=== PATIENT | male | born 1965 | race Caucasian/White ===

== ENCOUNTER 2016-12-14 18:07 | Emergency (ER) | payer MEDICAID ==
[~2016-12-14] VITALS: Ht 175.3 cm; Wt 98.2 kg
[~2016-12-14 18:07] MED LIST: ALBU8.5H5 INH; AMOX-291 PO; CIPR500T3 PO; MULT-412 PO; ROSE PO; SIMV20TA3 PO; TAMS0.4C2 PO; [UNRECOGNIZED DRUG - OTHER] PO; fish oil; magnesium with zinc PO; vitamin d
[2016-12-14 18:08] VITALS: BP 128/80
== END 2016-12-14 19:40 | disposition home or self-care (01) ==
LOC: ED 19:15
DX: L03.317 Cellulitis of buttock (principal)
CPT/HCPCS: 99283

== ENCOUNTER 2017-03-30 11:50 | Emergency (ER) | payer MEDICAID ==
[~2017-03-30] VITALS: Ht 175.3 cm; Wt 100.0 kg
[2017-03-30 11:56] VITALS: BP 133/85
[2017-03-30] MEDS ORDERED: IBUPROFEN 200 MG TABLET PO ONE (12:30)
[2017-03-30] MEDS ORDERED: IBUPROFEN 200 MG TABLET ONE (12:34)
== END 2017-03-30 13:08 | disposition home or self-care (01) ==
LOC: ED 12:32
DX: S39.012A Strain of muscle, fascia and tendon of lower back, initial encounter (principal); G89.29 Other chronic pain; E78.00 Pure hypercholesterolemia, unspecified; J45.909 Unspecified asthma, uncomplicated; X58.XXXA Exposure to other specified factors, initial encounter; Y93.89 Activity, other specified; Y92.9 Unspecified place or not applicable; Y99.9 Unspecified external cause status
CPT/HCPCS: 99283

== ENCOUNTER 2017-05-09 13:42 | Emergency (ER) | payer MEDICAID ==
[~2017-05-09] VITALS: Ht 175.3 cm; Wt 100.7 kg
[2017-05-09 14:01] VITALS: BP 135/90
[2017-05-09] MEDS ORDERED: FAMOTIDINE 20 MG/2 ML IVP ONE (14:30)
[2017-05-09] MEDS ORDERED: MORPHINE SULFATE 4 MG/ML, 1ML IVPush PRN (14:30)
[2017-05-09] MEDS ORDERED: ONDANSETRON 2MG/ML, 2ML IVPush ONE (14:30)
[2017-05-09] MEDS ORDERED: SODIUM CHLORIDE 0.9% 1,000ML IVBOLUS ONE (14:30)
[2017-05-09] MEDS ORDERED: SODIUM CHLORIDE FLUSH 10ML SYR IVF ONE (14:30)
[2017-05-09 14:33] LABS: BASOPHILS # (AUTO) 0.01 x10^3/uL (0-0.1); BASOPHILS % (AUTO) 0 % (0-1); EOSINOPHILS # (AUTO) 0.12 x10^3/uL (0-0.4); EOSINOPHILS % (AUTO) 2 % (1-7); LYMPHOCYTES # (AUTO) 1.34 x10^3/uL (1-3.4); LYMPHOCYTES % (AUTO) 27 % (22-44); MD NO; MEAN CORPUSCULAR HEMOGLOBIN 29.9 pg (27.5-34.5); MEAN CORPUSCULAR HGB CONC 33.9 g/dL (33.2-36.2); MEAN CORPUSCULAR VOLUME 88.2 fL (81-97); MEAN PLATELET VOLUME 8.7 fL (7.4-10.4); MONOCYTES # (AUTO) 0.46 x10^3/uL (0.2-0.8); MONOCYTES % (AUTO) 9 % (2-9); NEUTROPHILS # (AUTO) 3.01 x10^3/uL (1.8-6.8); NEUTROPHILS % (AUTO) 61 % (42-75); PLATELET COUNT 293 x10^3/uL (130-400); RED BLOOD COUNT 4.61 x10^6/uL (4.38-5.82); RED CELL DISTRIBUTION WIDTH 12.7 % (9.4-14.8)
[2017-05-09 14:45] LABS: ALBUMIN 4.2 g/dL (3.4-5.0); ANION GAP 9 mmol/L (5-15); CALCIUM 9.1 mg/dL (8.5-10.1); CHLORIDE 107 mmol/L (98-107)
[2017-05-09 14:48] LABS: ALANINE AMINOTRANSFERASE 28 U/L (12-78); ALKALINE PHOSPHATASE 61 U/L (45-117); BILIRUBIN,TOTAL 0.6 mg/dL (0.2-1.0); CREATININE 1.36 mg/dL (0.7-1.3); TOTAL PROTEIN 7.3 g/dL (6.4-8.2)
== END 2017-05-09 15:24 | disposition home or self-care (01) ==
LOC: ED 15:18
DX: R10.33 Periumbilical pain (principal); E78.00 Pure hypercholesterolemia, unspecified
CPT/HCPCS: 36415; 76700; 80053; 83690; 85025; 99285

== ENCOUNTER 2017-05-31 15:15 | Emergency (ER) | payer MEDICAID ==
[~2017-05-31] VITALS: Ht 175.3 cm; Wt 97.9 kg
[2017-05-31] MEDS ORDERED: KETOROLAC 30 MG/1 ML ONE (15:54)
[2017-05-31] MEDS ORDERED: KETOROLAC 30 MG/1 ML IM ONE (16:00)
[2017-05-31 16:11] VITALS: BP 150/81
== END 2017-05-31 16:14 | disposition home or self-care (01) ==
LOC: ED 16:00
DX: G89.29 Other chronic pain (principal); M79.652 Pain in left thigh; M79.651 Pain in right thigh; M25.562 Pain in left knee; M25.561 Pain in right knee; M25.572 Pain in left ankle and joints of left foot; M25.571 Pain in right ankle and joints of right foot; M54.16 Radiculopathy, lumbar region; E78.00 Pure hypercholesterolemia, unspecified
CPT/HCPCS: 96372; 99283; J1885

== ENCOUNTER 2017-09-02 20:01 | Emergency (ER) | payer MEDICAID ==
[~2017-09-02] VITALS: Ht 175.3 cm; Wt 91.9 kg
[2017-09-02 20:08] VITALS: BP 129/76
== END 2017-09-02 21:31 | disposition home or self-care (01) ==
LOC: ED 21:00
DX: S90.32XA Contusion of left foot, initial encounter (principal); W23.0XXA Caught, crushed, jammed, or pinched between moving objects, initial encounter; Y93.89 Activity, other specified; Y92.89 Other specified places as the place of occurrence of the external cause; Y99.8 Other external cause status
CPT/HCPCS: 99284

== ENCOUNTER 2018-01-12 06:55 | Emergency (ER) | payer MEDICAID ==
[~2018-01-12] VITALS: Ht 175.3 cm; Wt 93.0 kg
[2018-01-12 07:00] VITALS: BP 121/75
[2018-01-12] MEDS ORDERED: KETOROLAC 30 MG/1 ML ONE (07:34)
[2018-01-12] MEDS ORDERED: KETOROLAC 30 MG/1 ML IM ONE (08:00)
== END 2018-01-12 08:38 | disposition home or self-care (01) ==
LOC: ED 08:12
DX: S39.012A Strain of muscle, fascia and tendon of lower back, initial encounter (principal); R21 Rash and other nonspecific skin eruption; J45.909 Unspecified asthma, uncomplicated; E78.00 Pure hypercholesterolemia, unspecified; G89.29 Other chronic pain; X58.XXXA Exposure to other specified factors, initial encounter; Y93.89 Activity, other specified; Y92.89 Other specified places as the place of occurrence of the external cause; Y99.8 Other external cause status
CPT/HCPCS: 72110; 96372; 99284; J1885

== ENCOUNTER 2018-03-03 14:02 | Emergency (ER) | payer MEDICAID ==
[~2018-03-03] VITALS: Ht 175.3 cm; Wt 93.5 kg
[2018-03-03 14:29] VITALS: BP 112/75
== END 2018-03-03 15:51 | disposition home or self-care (01) ==
LOC: ED 15:20
DX: K05.10 Chronic gingivitis, plaque induced (principal); E78.5 Hyperlipidemia, unspecified; I10 Essential (primary) hypertension; G89.29 Other chronic pain; J45.909 Unspecified asthma, uncomplicated; E78.00 Pure hypercholesterolemia, unspecified
CPT/HCPCS: 99283

== ENCOUNTER 2018-07-11 13:31 | Emergency (ER) | payer MEDICAID ==
[~2018-07-11] VITALS: Ht 175.3 cm; Wt 92.0 kg
[2018-07-11 14:50] LABS: BASOPHILS # (AUTO) 0.02 x10^3/uL (0-0.1); BASOPHILS % (AUTO) 0 % (0-1); EOSINOPHILS % (AUTO) 2 % (1-7); LYMPHOCYTES # (AUTO) 1.84 x10^3/uL (1-3.4); LYMPHOCYTES % (AUTO) 32 % (22-44); MD NO; MEAN CORPUSCULAR HEMOGLOBIN 29.8 pg (27.5-34.5); MEAN CORPUSCULAR HGB CONC 34.2 g/dL (33.2-36.2); MEAN CORPUSCULAR VOLUME 87.1 fL (81-97); MEAN PLATELET VOLUME 8.2 fL (7.4-10.4); MONOCYTES # (AUTO) 0.49 x10^3/uL (0.2-0.8); MONOCYTES % (AUTO) 9 % (2-9); NEUTROPHILS # (AUTO) 3.27 x10^3/uL (1.8-6.8); NEUTROPHILS % (AUTO) 57 % (42-75); PLATELET COUNT 306 x10^3/uL (130-400); RED BLOOD COUNT 4.47 x10^6/uL (4.38-5.82); RED CELL DISTRIBUTION WIDTH 13.9 % (9.4-14.8)
[2018-07-11 15:01] LABS: ALANINE AMINOTRANSFERASE 41 U/L (12-78); ALBUMIN 3.9 g/dL (3.4-5.0); ANION GAP 5 mmol/L (5-15); CALCIUM 9.1 mg/dL (8.5-10.1); CHLORIDE 111 mmol/L (98-107); CREATININE 1.04 mg/dL (0.7-1.3)
[2018-07-11 15:03] LABS: ALKALINE PHOSPHATASE 113 U/L (45-117); BILIRUBIN,TOTAL 0.3 mg/dL (0.2-1.0)
--- NOTE | 2018-07-11 15:52 | NUR ---
TO ROOM FROM LOBBY. NAD.
[2018-07-11] MEDS ORDERED: BACITRACIN OINT 500U/GM, 15 GM TP ONE (17:00)
[2018-07-11] MEDS ORDERED: BACITRACIN ZINC OINT 500U/GM, 0.9 GM ONE (17:14)
[2018-07-11 17:42] VITALS: BP 118/76
== END 2018-07-11 17:43 | disposition home or self-care (01) ==
LOC: ED 16:12
DX: L23.1 Allergic contact dermatitis due to adhesives (principal); E78.00 Pure hypercholesterolemia, unspecified; G89.29 Other chronic pain; E78.5 Hyperlipidemia, unspecified; I10 Essential (primary) hypertension
CPT/HCPCS: 36415; 74018; 80053; 83690; 85025; 99284

== ENCOUNTER 2018-07-26 15:05 | Emergency (ER) | payer MEDICAID ==
[~2018-07-26] VITALS: Ht 175.3 cm; Wt 90.2 kg
[2018-07-26 15:12] VITALS: BP 127/75
== END 2018-07-26 16:03 | disposition home or self-care (01) ==
LOC: ED 15:21
DX: J06.9 Acute upper respiratory infection, unspecified (principal); I10 Essential (primary) hypertension
CPT/HCPCS: 71046; 99283

== ENCOUNTER 2018-10-29 16:15 | Emergency (ER) | payer MEDICAID ==
[~2018-10-29] VITALS: Ht 175.3 cm; Wt 90.9 kg
[2018-10-29 16:19] VITALS: BP 112/74
== END 2018-10-29 17:06 | disposition home or self-care (01) ==
LOC: ED 16:56
DX: R10.33 Periumbilical pain (principal); I10 Essential (primary) hypertension; E78.5 Hyperlipidemia, unspecified; E78.00 Pure hypercholesterolemia, unspecified
CPT/HCPCS: 36415; 74021; 80053; 83690; 85025; 99284; Q0162

== ENCOUNTER 2019-03-19 14:36 | Emergency (ER) | payer MEDICAID ==
[~2019-03-19] VITALS: Ht 175.3 cm; Wt 97.4 kg
[2019-03-19 14:47] VITALS: BP 145/86
--- NOTE | 2019-03-19 15:11 | NUR ---
PT C/O RUQ ABD PAIN STARTING TODAY AT 0900. HX HERNIA REPAIR IN SAME AREA. CONNECTED TO MONITORING. CALL LIGHT IN REACH. AWAITING ORDERS AT THIS TIME.
[2019-03-19 16:02] LABS: BASOPHILS # (AUTO) 0.05 x10^3/uL (0-0.1); BASOPHILS % (AUTO) 1 % (0-1); EOSINOPHILS # (AUTO) 0.15 x10^3/uL (0-0.4); EOSINOPHILS % (AUTO) 2 % (1-7); LYMPHOCYTES # (AUTO) 1.32 x10^3/uL (1-3.4); LYMPHOCYTES % (AUTO) 16 % (22-44); MD NO; MEAN CORPUSCULAR HEMOGLOBIN 29.2 pg (27.5-34.5); MEAN CORPUSCULAR HGB CONC 33.5 g/dL (33.2-36.2); MEAN CORPUSCULAR VOLUME 87.3 fL (81-97); MEAN PLATELET VOLUME 8.2 fL (7.4-10.4); MONOCYTES # (AUTO) 0.68 x10^3/uL (0.2-0.8); MONOCYTES % (AUTO) 8 % (2-9); NEUTROPHILS # (AUTO) 6.22 x10^3/uL (1.8-6.8); NEUTROPHILS % (AUTO) 74 % (42-75); PLATELET COUNT 281 x10^3/uL (130-400); RED BLOOD COUNT 5.11 x10^6/uL (4.38-5.82); RED CELL DISTRIBUTION WIDTH 13.4 % (9.4-14.8)
[2019-03-19 16:06] LABS: ALBUMIN 3.8 g/dL (3.4-5.0); ANION GAP 6 mmol/L (5-15); CALCIUM 9.3 mg/dL (8.5-10.1); CHLORIDE 108 mmol/L (98-107)
[2019-03-19 16:11] LABS: ALANINE AMINOTRANSFERASE 23 U/L (12-78); ALKALINE PHOSPHATASE 112 U/L (45-117); BILIRUBIN,TOTAL 0.6 mg/dL (0.2-1.0); CREATININE 0.97 mg/dL (0.7-1.3); TOTAL PROTEIN 7.5 g/dL (6.4-8.2)
--- NOTE | 2019-03-19 17:03 | NUR ---
ALL RESULTS ARE BACK AT THIS TIME. CHART UP FOR RECHECK.
== END 2019-03-19 17:28 | disposition home or self-care (01) ==
LOC: ED 17:10
DX: R10.84 Generalized abdominal pain (principal); I10 Essential (primary) hypertension; E78.5 Hyperlipidemia, unspecified
CPT/HCPCS: 36415; 74021; 76700; 80053; 83690; 85025; 99284

== ENCOUNTER 2019-05-23 14:04 | Emergency (ER) | payer MEDICAID ==
[~2019-05-23] VITALS: Ht 175.3 cm; Wt 94.3 kg
[~2019-05-23 14:04] MED LIST changes: +SIMV20TA19 PO; -SIMV20TA3 PO
[2019-05-23 14:11] VITALS: BP 130/74
--- NOTE | 2019-05-23 15:50 | NUR ---
P to rm 1 from lobby
[2019-05-23 16:24] LABS: ALBUMIN 3.7 g/dL (3.4-5.0); ANION GAP 5 mmol/L (5-15); CALCIUM 9.1 mg/dL (8.5-10.1); CHLORIDE 107 mmol/L (98-107)
[2019-05-23 16:27] LABS: ALANINE AMINOTRANSFERASE 28 U/L (12-78); ALKALINE PHOSPHATASE 85 U/L (45-117); BASOPHILS # (AUTO) 0.03 x10^3/uL (0-0.1); BASOPHILS % (AUTO) 0 % (0-1); BILIRUBIN,TOTAL 0.4 mg/dL (0.2-1.0); EOSINOPHILS # (AUTO) 0.23 x10^3/uL (0-0.4); EOSINOPHILS % (AUTO) 3 % (1-7); LYMPHOCYTES # (AUTO) 2.06 x10^3/uL (1-3.4); LYMPHOCYTES % (AUTO) 28 % (22-44); MD NO; MEAN CORPUSCULAR HEMOGLOBIN 29.7 pg (27.5-34.5); MEAN CORPUSCULAR HGB CONC 33.5 g/dL (33.2-36.2); MEAN CORPUSCULAR VOLUME 88.7 fL (81-97); MONOCYTES # (AUTO) 0.55 x10^3/uL (0.2-0.8); MONOCYTES % (AUTO) 8 % (2-9); NEUTROPHILS # (AUTO) 4.42 x10^3/uL (1.8-6.8); NEUTROPHILS % (AUTO) 61 % (42-75); PLATELET COUNT 324 x10^3/uL (130-400); RED BLOOD COUNT 5.13 x10^6/uL (4.38-5.82); RED CELL DISTRIBUTION WIDTH 13.6 % (9.4-14.8); TOTAL PROTEIN 7.2 g/dL (6.4-8.2)
[2019-05-23 16:57] LABS: MICROSCOPIC NOT IND
--- NOTE | 2019-05-23 16:59 | NUR ---
PT STATES HE GETS STOMACH PAIN AND HE THINKS IT IS FROM STRESS. URINE SAMPLE OBTAINED.
[2019-05-23 17:02] LABS: CULTURE INDICATED? NO
== END 2019-05-23 17:44 | disposition home or self-care (01) ==
LOC: ED 17:04
DX: F41.1 Generalized anxiety disorder (principal); J45.909 Unspecified asthma, uncomplicated
CPT/HCPCS: 36415; 74021; 80053; 81003; 83690; 85025; 99284

== ENCOUNTER 2019-06-25 14:28 | Emergency (ER) | payer MEDICAID ==
[~2019-06-25] VITALS: Ht 175.3 cm; Wt 94.4 kg
--- NOTE | 2019-06-25 15:14 | NUR ---
PT RESTING IN [place] IN [place], LAB AT , DENIES ADDITIONAL NEEDS, CALL LIGHT ON LAP, NAD, EVEN AND UNLABORED RESPIRATIONS, CONVERSING WITH RN IN FULL AND COMPLETE SENTENCES NO SOB NOTED. WCTM. WAITING ON RAD AND LAB RESULTS
[2019-06-25 15:32] LABS: BASOPHILS # (AUTO) 0.02 x10^3/uL (0-0.1); BASOPHILS % (AUTO) 1 % (0-1); EOSINOPHILS # (AUTO) 0.14 x10^3/uL (0-0.4); EOSINOPHILS % (AUTO) 4 % (1-7); LYMPHOCYTES % (AUTO) 27 % (22-44); MD NO; MEAN CORPUSCULAR HEMOGLOBIN 29.4 pg (27.5-34.5); MEAN CORPUSCULAR HGB CONC 33.8 g/dL (33.2-36.2); MEAN PLATELET VOLUME 7.9 fL (7.4-10.4); MONOCYTES # (AUTO) 0.57 x10^3/uL (0.2-0.8); MONOCYTES % (AUTO) 15 % (2-9); NEUTROPHILS # (AUTO) 2.05 x10^3/uL (1.8-6.8); NEUTROPHILS % (AUTO) 54 % (42-75); PLATELET COUNT 267 x10^3/uL (130-400); RED BLOOD COUNT 5.18 x10^6/uL (4.38-5.82); RED CELL DISTRIBUTION WIDTH 13.6 % (9.4-14.8)
[2019-06-25 15:33] LABS: ALBUMIN 3.8 g/dL (3.4-5.0); ANION GAP 4 mmol/L (5-15); CALCIUM 9.2 mg/dL (8.5-10.1); CHLORIDE 110 mmol/L (98-107); CREATININE 1.12 mg/dL (0.7-1.3)
--- NOTE | 2019-06-25 15:47 | NUR ---
Pt resting in gurney with blanket, call light within reach, NAD, denies additional needs, even and unlabored respirations, eyes open, WCTM.
[2019-06-25 15:48] VITALS: BP 114/74
--- NOTE | 2019-06-25 16:16 | NUR ---
Patient given discharge instructions and they have confirmed that they understand the instructions. Patient ambulatory with steady gait. Questions answered, denies additional needs or questions at this time.
== END 2019-06-25 16:26 | disposition home or self-care (01) ==
LOC: ED 16:09
DX: R19.7 Diarrhea, unspecified (principal); R10.9 Unspecified abdominal pain; E78.00 Pure hypercholesterolemia, unspecified; J45.909 Unspecified asthma, uncomplicated; G89.29 Other chronic pain; Z98.890 Other specified postprocedural states
CPT/HCPCS: 36415; 74018; 80048; 82040; 85025; 99284

== ENCOUNTER 2019-12-14 03:31 | Emergency (ER) | payer MEDICAID ==
[~2019-12-14] VITALS: Ht 172.7 cm; Wt 90.8 kg
[2019-12-14 03:35] VITALS: BP 137/84
[2019-12-14 04:11] LABS: BASOPHILS % (AUTO) 1 % (0-1); EOSINOPHILS % (AUTO) 1 % (1-7); LYMPHOCYTES % (AUTO) 9 % (22-44); MEAN CORPUSCULAR HEMOGLOBIN 29.9 pg (27.5-34.5); MEAN CORPUSCULAR HGB CONC 33.4 g/dL (33.2-36.2); MEAN PLATELET VOLUME 8.2 fL (7.4-10.4); MONOCYTES % (AUTO) 18 % (2-9); NEUTROPHILS % (AUTO) 72 % (42-75); PLATELET COUNT 236 x10^3/uL (130-400); RED BLOOD COUNT 4.99 x10^6/uL (4.38-5.82); RED CELL DISTRIBUTION WIDTH 13.2 % (9.4-14.8)
[2019-12-14 04:14] LABS: MD NO
[2019-12-14 04:19] LABS: ANION GAP 5 mmol/L (5-15); CALCIUM 8.8 mg/dL (8.5-10.1); CHLORIDE 107 mmol/L (98-107); CREATININE 1.04 mg/dL (0.7-1.3)
[2019-12-14 04:25] LABS: MICROSCOPIC NOT IND
== END 2019-12-14 04:33 | disposition home or self-care (01) ==
LOC: ED 04:01
DX: R10.32 Left lower quadrant pain (principal); R30.0 Dysuria; R50.9 Fever, unspecified; E78.00 Pure hypercholesterolemia, unspecified; J45.909 Unspecified asthma, uncomplicated
CPT/HCPCS: 36415; 80048; 81003; 85025; 99283

== ENCOUNTER 2020-03-08 13:50 | Emergency (ER) | payer MEDICAID ==
[~2020-03-08] VITALS: Ht 175.3 cm; Wt 95.0 kg
[2020-03-08 14:48] LABS: BASOPHILS % (AUTO) 1 % (0-1); EOSINOPHILS % (AUTO) 4 % (1-7); LYMPHOCYTES % (AUTO) 31 % (22-44); MEAN CORPUSCULAR HEMOGLOBIN 30.5 pg (27.5-34.5); MEAN CORPUSCULAR HGB CONC 33.8 g/dL (33.2-36.2); MEAN PLATELET VOLUME 7.5 fL (7.4-10.4); MONOCYTES % (AUTO) 11 % (2-9); NEUTROPHILS % (AUTO) 53 % (42-75); PLATELET COUNT 277 x10^3/uL (130-400); RED BLOOD COUNT 4.83 x10^6/uL (4.38-5.82); RED CELL DISTRIBUTION WIDTH 13.5 % (9.4-14.8)
[2020-03-08 14:49] LABS: MD NO
[2020-03-08 15:01] LABS: ALBUMIN 3.9 g/dL (3.4-5.0); CALCIUM 9.2 mg/dL (8.5-10.1); CREATININE 1.08 mg/dL (0.7-1.3)
[2020-03-08 15:09] LABS: ANION GAP 6 mmol/L (5-15); CHLORIDE 105 mmol/L (98-107)
--- NOTE | 2020-03-08 17:51 | NUR ---
Manasa castillo in ED - 03/08/20 at 1801 by T[employer] fire officer: pt from lobby to room 8
--- NOTE | 2020-03-08 18:23 | NUR ---
patent clerk: pt from lobby to 26
[2020-03-08 18:50] VITALS: BP 105/72
== END 2020-03-08 20:42 | disposition home or self-care (01) ==
LOC: ED 18:46
DX: G62.9 Polyneuropathy, unspecified (principal); G89.29 Other chronic pain; E78.00 Pure hypercholesterolemia, unspecified
CPT/HCPCS: 36415; 80048; 82040; 85025; 93970; 99284

== ENCOUNTER 2020-06-30 19:26 | Emergency (ER) | payer MEDICAID ==
[~2020-06-30] VITALS: Ht 175.3 cm; Wt 101.1 kg
[~2020-06-30 19:26] MED LIST changes: -CIPR500T3 PO; +CIPR500T4 PO
--- NOTE | 2020-06-30 20:29 | NUR ---
BEDSIDE REPORT FROM YAJAIRA BOUCHER, PT CARE TRANSFERRED AT THIS TIME. PT NAD, RESTING ON GURNEY, VSS, NO CHANGE IN CONDITION, AWAITING CHEST RAD. WCTM.
[2020-06-30 21:06] VITALS: BP 126/80
--- NOTE | 2020-06-30 21:07 | NUR ---
Patient given discharge instructions and they have confirmed that they understand the instructions. Patient ambulatory with steady gait. nad, denies additional questions or needs at this time. vss. no personal belongings left in room after dc.
== END 2020-06-30 21:10 | disposition home or self-care (01) ==
LOC: ED 19:56
DX: B34.9 Viral infection, unspecified (principal); R05 Cough; J45.909 Unspecified asthma, uncomplicated; G89.29 Other chronic pain
CPT/HCPCS: 71046; 99283

== ENCOUNTER 2020-07-12 14:59 | Emergency (ER) | payer MEDICAID ==
[~2020-07-12] VITALS: Ht 175.3 cm; Wt 103.1 kg
--- NOTE | 2020-07-12 15:03 | NUR ---
PT CALLED TO TRIAGE X1, IN RR.
--- NOTE | 2020-07-12 15:38 | NUR ---
PT C/O RIGHT TESTICLE SWELLING. UNK LENGTH OF TIME. PT HAS A HX OF CYST IN THE AREA.
[2020-07-12 15:57] LABS: MICROSCOPIC NOT IND
[2020-07-12 17:03] VITALS: BP 135/93
--- NOTE | 2020-07-12 17:04 | NUR ---
PT REC'VD DISCHARGE INSTRUCTIONS AND EDUCATION. PT HAD NO FURTHER QUESTIONS. PT AMBULATED TO DC AREA, STEADY GAIT.
== END 2020-07-12 17:48 | disposition home or self-care (01) ==
LOC: ED 16:30
DX: N43.2 Other hydrocele (principal); J45.909 Unspecified asthma, uncomplicated; E78.00 Pure hypercholesterolemia, unspecified
CPT/HCPCS: 76870; 81003; 99284

== ENCOUNTER 2020-08-27 15:28 | Emergency (ER) | payer MEDICAID ==
[~2020-08-27] VITALS: Ht 175.3 cm; Wt 103.0 kg
[2020-08-27 15:29] VITALS: BP 127/81
[2020-08-27] MEDS ORDERED: IBUPROFEN 600 MG TABLET PO ONE (16:00)
[2020-08-27] MEDS ORDERED: IBUPROFEN 600 MG TABLET ONE (16:09)
== END 2020-08-27 16:48 | disposition home or self-care (01) ==
LOC: ED 16:06
DX: S76.111A Strain of right quadriceps muscle, fascia and tendon, initial encounter (principal); M25.561 Pain in right knee; J45.909 Unspecified asthma, uncomplicated; E78.00 Pure hypercholesterolemia, unspecified; X58.XXXA Exposure to other specified factors, initial encounter; Y93.89 Activity, other specified; Y92.009 Unspecified place in unspecified non-institutional (private) residence as the place of occurrence of the external cause; Y99.8 Other external cause status
CPT/HCPCS: 99283

== ENCOUNTER 2020-09-04 13:26 | Emergency (ER) | payer MEDICAID ==
[~2020-09-04] VITALS: Ht 175.3 cm; Wt 102.1 kg
[2020-09-04] MEDS ORDERED: DEXAMETHASONE 4 MG/ML, 1ML PO ONE (14:00)
[2020-09-04] MEDS ORDERED: DEXAMETHASONE 4 MG/ML, 1ML ONE (14:30)
[2020-09-04 15:46] VITALS: BP 120/81
--- NOTE | 2020-09-04 15:47 | NUR ---
PT REC'VD DISCHARGE INSTRUCTIONS AND EDUCATION. PT HAD NO FURTHER QUESTIONS. PT AMBULATED TO DC AREA, STEADY GAIT.
== END 2020-09-04 15:55 | disposition home or self-care (01) ==
LOC: ED 14:31
DX: U07.1 COVID-19 (principal); B34.9 Viral infection, unspecified; E78.00 Pure hypercholesterolemia, unspecified
CPT/HCPCS: 87081; 87880; 99283; J1100; U0003; U0005

== ENCOUNTER 2020-09-17 14:34 | Emergency (ER) | payer MEDICAID ==
[~2020-09-17] VITALS: Ht 175.3 cm; Wt 105.0 kg
[2020-09-17 14:43] VITALS: BP 132/79
== END 2020-09-17 15:06 | disposition home or self-care (01) ==
LOC: ED 15:00
DX: U07.1 COVID-19 (principal); J06.9 Acute upper respiratory infection, unspecified
CPT/HCPCS: 99281

== ENCOUNTER 2020-10-25 18:13 | Emergency (ER) | payer MEDICAID ==
[~2020-10-25] VITALS: Ht 175.3 cm; Wt 103.0 kg
--- NOTE | 2020-10-25 19:22 | NUR ---
pt presents to ed with c/o gernealized weakness in back and generalized abd pain, states intermittent x2 years. pt a&o, resps even and unlabored, nadn.
--- NOTE | 2020-10-25 19:30 | NUR ---
UA WALKED TO LAB AT THIS TIME
[2020-10-25 19:36] LABS: BASOPHILS % (AUTO) 1 % (0-1); EOSINOPHILS % (AUTO) 3 % (1-7); LYMPHOCYTES % (AUTO) 36 % (22-44); MEAN CORPUSCULAR HEMOGLOBIN 30.2 pg (27.5-34.5); MEAN CORPUSCULAR HGB CONC 34.6 g/dL (33.2-36.2); MEAN PLATELET VOLUME 7.5 fL (7.4-10.4); MONOCYTES % (AUTO) 9 % (2-9); NEUTROPHILS % (AUTO) 51 % (42-75); PLATELET COUNT 292 x10^3/uL (130-400); RED BLOOD COUNT 4.77 x10^6/uL (4.38-5.82); RED CELL DISTRIBUTION WIDTH 13.1 % (9.4-14.8)
[2020-10-25 19:46] LABS: MICROSCOPIC NOT IND
[2020-10-25 19:49] LABS: ALANINE AMINOTRANSFERASE 45 U/L (12-78); ALBUMIN 3.7 g/dL (3.4-5.0); ANION GAP 6 mmol/L (5-15); CALCIUM 9.2 mg/dL (8.5-10.1); CHLORIDE 109 mmol/L (98-107); CREATININE 0.99 mg/dL (0.7-1.3)
[2020-10-25 19:51] LABS: ALKALINE PHOSPHATASE 115 U/L (45-117); BILIRUBIN,TOTAL 0.4 mg/dL (0.2-1.0); TOTAL PROTEIN 7.3 g/dL (6.4-8.2)
--- NOTE | 2020-10-25 20:32 | NUR ---
ATTEMPTED TO DISCHARGE PATIENT. PATIENT STATED THAT HE WANTED A NAPROXEN PRIOR TO DC. AWAITING ORDER FROM .
[2020-10-25] MEDS ORDERED: NAPROXEN 500 MG TABLET ONE (20:38)
[2020-10-25 20:40] VITALS: BP 127/67
[2020-10-25] MEDS ORDERED: NAPROXEN 500 MG TABLET PO ONE (21:00)
== END 2020-10-25 20:41 | disposition home or self-care (01) ==
LOC: ED 20:39
DX: R10.84 Generalized abdominal pain (principal); G89.29 Other chronic pain; M54.5 Low back pain; E78.00 Pure hypercholesterolemia, unspecified; F17.200 Nicotine dependence, unspecified, uncomplicated
CPT/HCPCS: 36415; 72110; 80053; 81003; 83690; 85025; 99284